=== PATIENT | male | born 1935 | race Caucasian/White ===

== ENCOUNTER 2019-03-17 11:03 | Emergency (ER) | payer OTHER ==
[~2019-03-17] VITALS: Ht 160 cm; Wt 61.2 kg
[2019-03-17 11:13] VITALS: Ht 160 cm; Wt 61.2 kg
[2019-03-17 11:52] LABS: PLATELET COUNT 134 x10^3mcL (130-400)
[2019-03-17 11:56] LABS: RED CELL DISTRIBUTION WIDTH 16.1 % (11.5-14.5)
[2019-03-17 12:15] LABS: CALCIUM 7.8 mg/dL (8.5-10.1); CARBON DIOXIDE 21.5 mmol/L (21-32); CHLORIDE SERUM 102 mmol/L (98-107); CREATININE SERUM 1.5 mg/dL (0.7-1.3); GLUCOSE SERUM 137 mg/dL (74-106); SODIUM SERUM 135 mmol/L (136-145)
[2019-03-17 12:23] LABS: ALKALINE PHOSPHATASE 55 U/L (46-116); ALT/SGPT 28 U/L (16-63); AST/SGOT 35 U/L (15-37); BILIRUBIN TOTAL 0.99 mg/dL (0.20-1.00); CHOLESTEROL 145 mg/dL (<200); LIPASE 65 IU/L (73-393); TOTAL PROTEIN, SERUM 6.4 g/dL (6.4-8.2); TRIGLYCERIDES 93 mg/dL (<150)
[2019-03-17 12:24] LABS: ALBUMIN 2.7 g/dL (3.4-5.0); CHOLESTEROL/HDL RATIO 2.1; HDL CHOLESTEROL 68 mg/dL (40-60)
[2019-03-17 12:31] LABS: FREE T4 1.26 ng/dL (0.76-1.46); FREE THYROXINE INDEX 3.6 ug/dL (1.4-4.5); T4(THYROXINE) 10.1 ug/dL (4.7-13.3)
[2019-03-17 12:49] LABS: BAND NEUTROPHIL 8 % (0-10); BASOPHIL 0 % (0-2); MONOCYTE 10 % (0-7); SEGMENTED NEUTROPHILS 50 % (37-75)
[2019-03-17 12:50] LABS: ovalocyte/elliptocyte 1+; rbc morphology (normal/abnorm) ABNORMAL (NORMAL)
[2019-03-17 12:58] LABS: T3 TOTAL 0.77 ng/mL
[2019-03-17 13:01] LABS: UA SPECIFIC GRAVITY 1.025 (1.005-1.035); microscopic required? YES; urine erythrocyte 2+ (NEGATIVE)
[2019-03-17 14:39] VITALS: BP 131/70
== END 2019-03-17 14:39 | disposition home or self-care (01) ==
LOC: ED 11:03
PROVIDERS: Specialist
DX: E86.0 Dehydration (principal); R55 Syncope and collapse; N28.9 Disorder of kidney and ureter, unspecified; D72.819 Decreased white blood cell count, unspecified; Z85.038 Personal history of other malignant neoplasm of large intestine; Z98.890 Other specified postprocedural states
CPT/HCPCS: 83880; 84439; J7030; Q0092